=== PATIENT | male | born 1950 | race Caucasian/White ===

== ENCOUNTER 2020-05-19 11:02 | Inpatient (IN) ==
--- OUTSIDE RECORDS SUMMARY | 2020-05-19 11:04 | External Medical Summary | Continuity of Care Document ---
:1950 Author Name Melissa Stevenson Address Unavailable Unavailable , Care Team Providers Name Role Phone Unavailable Unavailable Unavailable Carrol Grider M.D. Unavailable [email or web address] CASTILLO Unavailable Unavailable Unavailable Unavailable Unavailable Problems Intrinsic asthma (493.10) (J45.909) Cholangiocarcinoma (155.1) (C22.1) Diabetes mellitus (250.00) (E11.9) Essential hypertension (401.9) (I10) Allergies and Adverse Reactions No Known Drug Allergies (Allergy) Medications Asmanex (60 Metered Doses) 220 MCG/INH I nhalation Aerosol Powder Breath Activated; USE 2 INHALATIONS DAILY (DISCARD 45 DAYS AFTER OPENING) Elva Grider Start: 18-Dec-2014 Quantity: 3 Refills: 2 HumaLOG Elva DAMON Refills: 0 Multi-Vitamin TABElva Ríos Refills: 0 Benazepril HCl - 40 MG Oral Tablet; TAKE 1 TABLET DAILY. Jaquelin Refills: 0 Procedures History of Rotator Cuff Repair Status: C ompleted History of Laminectomy Lumbar Status: Co mpleted History of Ankle Arthroplasty Status: Co mpleted History of Tonsillectomy Status: Complet ed History of Prox Subt Pancreat Near-Total Duodenectomy W/ Status: Completed Pancreatojej Immunizations Influenza On: Jan-2012 Family History Mother Family history of Congestive Heart Failure Status: Active Father Family history of Colon Cancer (V16.0) Status: Active Brother Family history of Cerebral Atherosclerosis Status: Active Social History - Smoking Status Never smoked tobacco Plan of Treatment Planned Observations Planned Goals not documented Results No Known Results Results not documented
--- NOTE | 2020-05-19 12:22 | Emergency Department Note ---
History of Present Illness General Chief Complaint: Illness Stated Complaint: Hypertension Time Seen by Provider: 05/19/20 12:04 Source: patient Mode of arrival: ambulatory Limitations: no limitations History of Present Illness Provider Complaint: abdominal pain Maximum Pain Intensity: 1 This is a 69-year-old male who presents to the ED with a chief complaint of mild epigastric abdominal pain as well as subjective fevers and chills this morning a little shakiness and elevated blood pressure. The patient states that his initial symptoms started on Sunday with some epigastric abdominal pain. It worsened on Sunday and seemed to improve on Sunday. It is steadily improved until today where he reports it is 1 out of 10. He states that he was seen by his PCP yesterday and had a chest x-ray that was unremarkable. The patient has history of cholangiocarcinoma with status post Whipple procedure in 2012. He has had his gallbladder removed as well at that time. The patient states that his blood pressure this morning was 245/154. He states that his heart rate was 106. He was concerned about these abnormal vital signs and felt that he should come in to have things evaluated. He states that yesterday he had a headache but it got better after a couple of Advil. The patient denies any cold symptoms. He denies any antipyretics today. Denies chest pains or shortness of breath. No nausea, vomiting or diarrhea now but he did have a little nausea this morning. Home Medications Medication Instructions Recorded Confirmed Type acetaminophen [Tylenol] 650 mg PO QID PRN 05/19/20 05/19/20 History amoxicillin 2,000 mg PO .PRIOR TO DENTAL DORITA 05/19/20 05/19/20 History xetmgli-ffefti-yrfpcfoe-cellul 2 cap PO TID 05/19/20 05/19/20 History ascorbic acid (vitamin C) [Vitamin 1 g PO DAILY 05/19/20 05/19/20 History C] atorvastatin 40 mg PO HS 05/19/20 05/19/20 History benazepril 10 mg PO DAILY 05/19/20 05/19/20 History glucagon [Glucagon Emergency Kit] 1 mg DIRECTED PRN 05/19/20 05/19/20 History ibuprofen [Advil] 200 mg PO Q6H PRN 05/19/20 05/19/20 History insulin aspart U-100 [Novolog 0 unit SUBCUT TID 05/19/20 05/19/20 History Flexpen U-100 Insulin] insulin detemir U-100 [Levemir 20 unit SUBCUT HS 05/19/20 05/19/20 History FlexTouch U-100 Insuln] multivitamin 1 tab PO DAILY 05/19/20 05/19/20 History sildenafil 100 mg PO DAILY PRN 05/19/20 05/19/20 History Allergies Allergy/AdvReac Type Severity Reaction Status Date / Time No Known Allergies Allergy Verified 05/19/20 13:42 Past Med/Surg History Social History Smoking Status: Never smoker Feels Safe at Home: Yes Review of Systems A total of 10 systems reviewed and were otherwise negative Physical Exam Vital Signs: Vital Signs - 24 hr 05/19/20 11:06 05/19/20 12:30 05/19/20 12:40 Temperature 37.4 C Temperature Source Temporal Artery Sc an Pulse Rate 112 H 102 H Pulse Rate [Left] 102 H Respiratory Rate 18 18 18 Respiratory Effort / Characteristics Non-Labored Sponta neous Respiratory Depth Normal Blood Pressure 167/65 H Blood Pressure [Le ft Arm] 158/76 H Blood Pressure Diamante n 99 Blood Pressure Diamante n [Left Arm] 103 Blood Pressure Pos ition [Left Arm] Lying Pulse Oximetry 97 98 97 Oxygen Delivery Me thod Room Air Room Air Room Air Sepsis Recent Feve r Within 48 Hours No Sepsis New/Unexpla ined Change in Men karin Status No Sepsis Action Take n by Nursing No Action Required 05/19/20 14:09 05/19/20 16:08 Temperature 37.9 C H 39.5 C H Temperature Source Oral Oral Pulse Rate Pulse Rate [Left] 93 H 98 H Respiratory Rate 18 20 Respiratory Effort / Characteristics Non-Labored Sponta neous Non-Labored Sponta neous Respiratory Depth Normal Normal Blood Pressure Blood Pressure [Le ft Arm] 147/74 H 137/69 Blood Pressure Diamante n Blood Pressure Diamante n [Left Arm] 98 91 Blood Pressure Pos ition [Left Arm] Lying Lying Pulse Oximetry 97 95 Oxygen Delivery Me thod Room Air Room Air Sepsis Recent Feve r Within 48 Hours Sepsis New/Unexpla ined Change in Men karin Status Sepsis Action Take n by Nursing Physical Exam: CONSTITUTIONAL/VITAL SIGNS: Reviewed / noted above. GENERAL: Non-toxic in appearance. INTEGUMENTARY: Warm, dry, and [place]. HEAD: Normocephalic. EYES: without scleral icterus or trauma. ENT/OROPHARYNX: clear and moist. LYMPHADENOPATHY/NECK: Is supple without lymphadenopathy or meningismus. RESPIRATORY: Lungs clear and equal. CARDIOVASCULAR: Regular rate and rhythm. GI/ABDOMEN: Soft and nontender. No organomegaly or pulsatile mass. No rebound or guarding. Normal bowel sounds. Scar tissue in the epigastric region from his Whipple procedure. EXTREMITIES: Warm and well perfused. BACK: No CVA tenderness. NEUROLOGICAL: Intact without focal deficits. PSYCHIATRIC: normal affect. MUSCULOSKELETAL: Normally developed with good muscle tone. TRIAGE NURSING DOCUMENTATION REVIEWED. Course Administered Medications Discontinued Medications Acetaminophen (Acetaminophen 325 Mg Tab) 650 mg PO NOW STA Stop: 05/19/20 16:08 Last Admin: 05/19/20 16:15 Dose: 650 mg Documented by: [id number] Sodium Chloride (Nss) 500 mls @ 999 mls/hr IV .Q31M SHAMA Stop: 05/19/20 13:00 Last Infusion: 05/19/20 13:24 Dose: 0 mls/hr Documented by: [id number] Admin: 05/19/20 12:43 Dose: 999 mls/hr Documented by: [id number] Cefepime HCl (Maxipime) 2,000 mg in 20 mls @ 5 mls/min IV NOW STA; Protocol Stop: 05/19/20 12:36 Last Admin: 05/19/20 12:45 Dose: Not Given Documented by: [id number] Cefepime HCl (Maxipime) 2,000 mg in 20 mls @ 5 mls/min IV NOW STA; Protocol Stop: 05/19/20 16:18 Last Admin: 05/19/20 16:28 Dose: 5 mls/min Documented by: [id number] Ioversol (Ioversol 100ml) 94 ml IV ONCE ONE Stop: 05/19/20 15:06 Last Admin: 05/19/20 15:06 Dose: 94 ml Documented by: [id number] Medical Decision Making Differential Diagnosis Differential considered: pancreatitis, hepatitis, acute cholecystitis, AAA, UTI, pyelonephritis, kidney stones, appendicitis, diverticulitis, shingles, bowel obstruction, mesenteric ischemia, intussusception,hernia, recurrent cancer. Medical Records Attestation: I reviewed the patient's medical records. Home Medications Current Medication List: was personally reviewed by me Laboratory Data Attestation: I reviewed the patient's lab results. Result diagrams: 05/19/20 12:38 05/19/20 12:30 Lab Results 05/19/20 05/19/20 05/19/20 Range/Units 12:30 12:30 12:38 WBC 10.22 (4.8-10.8) K/uL RBC 4.29 L (4.7-6.1) M/uL Hgb 13.7 L (14.0-18.0) g/dL Hct 39.7 L (42-52) % MCV 92.5 (80-100) fL MCH 31.9 (25-34) pg MCHC 34.5 (32-36) g/dL RDW Std Deviation 42.9 (36.4-46.3) fL RDW Coeff of Shahab 12.7 (11.5-14.5) % Plt Count 196 (130-400) K/uL MPV 10.1 (7.4-10.4) fL Immature Gran % (Auto) 0.2 % Neut % (Auto) 83.5 % Lymph % (Auto) 5.2 % Rooks % (Auto) 10.5 % Eos % (Auto) 0.5 % Baso % (Auto) 0.1 % Neut # (Auto) 8.54 H (1.4-6.5) K/uL Lymph # (Auto) 0.53 L (1.2-3.4) K/uL Rooks # (Auto) 1.07 H (0.11-0.59) K/uL Eos # (Auto) 0.05 (0-0.5) K/uL Baso # (Auto) 0.01 (0-0.2) K/uL Immature Gran # (Auto) 0.02 (0.00-0.02) K/uL Sodium 139 (136-145) mmol/L Potassium 4.5 (3.5-5.1) mmol/L Chloride 105 (98-107) mmol/L Carbon Dioxide 26 (21-32) mmol/L Anion Gap 8.0 (3-11) BUN 14 (7-18) mg/dl Creatinine 1.20 (0.6-1.4) mg/dl Est Cr Clr Drug Dosing 62.0 ml/min Est GFR ( Amer) 70.1 Est GFR (Non-Af Amer) 60.5 BUN/Creatinine Ratio 11.7 (10-20) Glucose 212 H (70-99) mg/dl Calcium 8.9 (8.5-10.1) mg/dl Total Bilirubin 0.7 (0.2-1) mg/dl AST 47 H (15-37) U/L ALT 90 H (12-78) U/L Alkaline Phosphatase 167 H (45-117) U/L Total Protein 7.4 (6.4-8.2) gm/dl Albumin 3.3 L (3.4-5.0) gm/dl Globulin 4.1 H (2.5-4.0) gm/dl Albumin/Globulin Ratio 0.8 L (0.9-2) Lipase 24 L (73-393) U/L Urine Color Yellow Urine Appearance Clear (Clear) Urine pH 5.0 (4.5-7.5) Ur Specific [place] 1.025 (1.000-1.030) Urine Protein Negative (Negative) Urine Glucose (UA) Negative (Negative) Urine Ketones Trace H (Negative) Urine Blood Negative (Negative) Urine Nitrite Negative (Negative) Urine Bilirubin Negative (Negative) Urine Urobilinogen Negative (Negative) Ur Leukocyte Esterase Negative (Negative) COVID-19 Eval Order SARS-CoV-2, RNA, NAAT (NEGATIVE) 05/19/20 05/19/20 Range/Units 14:20 14:20 WBC (4.8-10.8) K/uL RBC (4.7-6.1) M/uL Hgb (14.0-18.0) g/dL Hct (42-52) % MCV (80-100) fL MCH (25-34) pg MCHC (32-36) g/dL RDW Std Deviation (36.4-46.3) fL RDW Coeff of Shahab (11.5-14.5) % Plt Count (130-400) K/uL MPV (7.4-10.4) fL Immature Gran % (Auto) % Neut % (Auto) % Lymph % (Auto) % Rooks % (Auto) % Eos % (Auto) % Baso % (Auto) % Neut # (Auto) (1.4-6.5) K/uL Lymph # (Auto) (1.2-3.4) K/uL Rooks # (Auto) (0.11-0.59) K/uL Eos # (Auto) (0-0.5) K/uL Baso # (Auto) (0-0.2) K/uL Immature Gran # (Auto) (0.00-0.02) K/uL Sodium (136-145) mmol/L Potassium (3.5-5.1) mmol/L Chloride (98-107) mmol/L Carbon Dioxide (21-32) mmol/L Anion Gap (3-11) BUN (7-18) mg/dl Creatinine (0.6-1.4) mg/dl Est Cr Clr Drug Dosing ml/min Est GFR ( Amer) Est GFR (Non-Af Amer) BUN/Creatinine Ratio (10-20) Glucose (70-99) mg/dl Calcium (8.5-10.1) mg/dl Total Bilirubin (0.2-1) mg/dl AST (15-37) U/L ALT (12-78) U/L Alkaline Phosphatase (45-117) U/L Total Protein (6.4-8.2) gm/dl Albumin (3.4-5.0) gm/dl Globulin (2.5-4.0) gm/dl Albumin/Globulin Ratio (0.9-2) Lipase (73-393) U/L Urine Color Urine Appearance (Clear) Urine pH (4.5-7.5) Ur Specific [place] (1.000-1.030) Urine Protein (Negative) Urine Glucose (UA) (Negative) Urine Ketones (Negative) Urine Blood (Negative) Urine Nitrite (Negative) Urine Bilirubin (Negative) Urine Urobilinogen (Negative) Ur Leukocyte Esterase (Negative) COVID-19 Eval [facility], RNA, NAAT NEGATIVE (NEGATIVE) Imaging Data Radiologist's Impression: XR chest 1V portable CLINICAL HISTORY: Respiratory sx c/w COVID-19 COUGH COMPARISON STUDY: 02/07/2013 FINDINGS: The cardiac and mediastinal contours are normal. There is no evidence of focal pulmonary consolidation. There is no evidence of failure. No pleural effusions are visualized.[ IMPRESSION: No active disease in the chest. CT scan of the abdomen pelvis:IMPRESSION: 1. Postoperative changes again noted consistent with prior Whipple procedure. Mild infiltration of the fat within the right side the abdomen adjacent to the suture material is similar to the prior study. Therefore, this favors postoperative changes. The majority subcentimeter right mesenteric/ileocolic lymph nodes also remain stable. There is a single right-sided mesenteric lymph node which has slightly increased in size as described above. This bears watching future examinations. 2. No hepatic masses. 3. Focal dilatation of the main pancreatic duct at the tail of the pancreas. There is abrupt caliber change with a punctate calcification adjacent to this location. This calcification is likely external to the duct, however, an obstructing pancreatic duct stone cannot be excluded. In addition, this abrupt caliber change could be due to a stricture or an occult lesion. Therefore, follow-up endoscopic ultrasound is recommended for further evaluation. 4. Diastases of the midline upper abdominal wall with outpouching of multiple bowel loops. However, no definite hernia identified. 5. Moderate well-formed stool seen within the colon and rectum. 6. Possible moderate focal narrowing within the mid splenic vein. This is difficult to assess on this study due to the timing of contrast. This may account for the prominent left upper quadrant varicosities. 7. Additional findings as described above. ECG Data Attestation: I personally reviewed and interpreted this ECG as follows: Indication: abdominal pain and tachycardia Rate (beats per minute): 94 Rhythm: normal sinus Findings: no PVC, no ST elevation and no prolonged QT MDM Narrative Patient presents with some improving epigastric abdominal pain as well as subjective fevers and chills this morning and elevated blood pressure. Further details listed above. The patient's exam did not reveal any focal abdominal tenderness. He appears well. His vital signs here are stable. He is tachycard ic with a heart rate of 112 and a blood pressure is elevated of 167/65. CBC is unremarkable. Glucose was 212. AST is 47 and ALT is 90. Alkaline phosphatase 167. Lipase was normal. Urine did not show infection. Chest x-ray was negative for acute disease. Covid test was negative. A CT scan of the abdomen pelvis as noted above. A follow-up endoscopic ultrasound was recommended for further evaluation of a dilated main pancreatic duct in the tail the pancreas. I feel this is less likely be the patient's issue as the patient's pancreatic enzymes are normal and his exam did not suggest any tenderness. The patient was reassessed and told the results of the test. He was given some IV fluids. He states that overall he is feeling better than when he came in. During the patient's ED stay, his temperature steadily increased to the point when he was being dispositioned his temperature was 39.5. The exact cause of this fever is unclear. This could be related to bacteremia. Blood cultures are pending. Because of the increasing fever and the patient's rigors and chills from earlier , I feel that patient needs observed to rule out bacteremia. He was given 1 dose of cefepime here empirically. I did speak with the hospitalist about this patient. Impression & Plan Abdominal pain, acute, epigastric Discharge Plan Visit Data Chief Complaint: Illness Stated Complaint: Hypertension ED Provider: Noah Garcia Discharge Problem: Abdominal pain, acute, epigastric Patient Disposition: Being Evaluated by Hospitalist Forms Stand Alone Forms: Coronavirus, My [facility] Prescriptions Prescriptions: No Action multivitamin Tablet 1 tab PO DAILY RF: 0 amoxicillin 500 mg Capsule 2,000 mg PO .PRIOR TO DENTAL DORITA RF: 0 atorvastatin 40 mg Tablet 40 mg PO HS RF: 0 Glucagon Emergency Kit 1 mg Kit 1 mg DIRECTED PRN (Reason: Glucose Emergency) RF: 0 ascorbic acid (vitamin C) [Vitamin C] 1,000 mg Tablet 1 g PO DAILY RF: 0 acetaminophen [Tylenol] 325 mg Tablet 650 mg PO QID PRN (Reason: pain or fever) RF: 0 sildenafil 100 mg Tablet 100 mg PO DAILY PRN (Reason: Erectile Dysfunction) RF: 0 ibuprofen [Advil] 200 mg Tablet 200 mg PO Q6H PRN (Reason: Pain) RF: 0 benazepril 10 mg Tablet 10 mg PO DAILY RF: 0 opzooii-pyqopz-mqakkskb-cellul Capsule 2 cap PO TID RF: 0 insulin aspart U-100 [Novolog Flexpen U-100 Insulin] 100 unit/mL (3 mL) Insulin Pen 0 unit SUBCUT TID RF: 0 Levemir FlexTouch U-100 Insuln 100 unit/mL (3 mL) Insulin Pen 20 unit SUBCUT HS RF: 0 Referrals Referrals: Dylan Esqueda, [Primary Care Provider] -
[2020-05-19] MEDS ORDERED: SODIUM CHLORIDE 0.9% 500 ML IV SCH (12:30)
[2020-05-19] MEDS ORDERED: CEFEPIME 2,000 MG/20 ML VIAL IV STA ×2 (12:33→16:15)
[2020-05-19] MEDS ORDERED: SODIUM CHLORIDE 0.9% 1000ML 1,000 ML IV SCH (12:45)
[2020-05-19 12:47] LABS: Basophils # (auto) 0.01 K/uL (0-0.2); Basophils % (auto) 0.1 %; Eosinophils # (auto) 0.05 K/uL (0-0.5); Eosinophils % (auto) 0.5 %; Hematocrit (blood only) 39.7 % (42-52); Hemoglobin 13.7 g/dL (14.0-18.0); Immature Granulocytes # (auto) 0.02 K/uL (0.00-0.02); Immature Granulocytes % (auto) 0.2 %; Lymphocytes # (auto) 0.53 K/uL (1.2-3.4); Lymphocytes % (auto) 5.2 %; Mean Corpuscular Hemoglobin 31.9 pg (25-34); Mean Corpuscular Hgb Conc 34.5 g/dL (32-36); Mean Corpuscular Volume 92.5 fL (80-100); Mean Platelet Volume 10.1 fL (7.4-10.4); Monocytes # (auto) 1.07 K/uL (0.11-0.59); Monocytes % (auto) 10.5 %; Neutrophils # (auto) 8.54 K/uL (1.4-6.5); Neutrophils % (auto) 83.5 %; Platelet Count 196 K/uL (130-400); RDW Coefficient of Variation 12.7 % (11.5-14.5); RDW Standard Deviation 42.9 fL (36.4-46.3); Red Blood Count 4.29 M/uL (4.7-6.1); White Blood Count 10.22 K/uL (4.8-10.8)
[2020-05-19 12:51] LABS: Appearance Urine Clear (Clear); Bilirubin Urine Negative (Negative); Blood Urine Negative (Negative); Color Urine Yellow; Glucose Urine UA Negative (Negative); Ketones Urine Trace (Negative); Leukocyte Esterase Urine Negative (Negative); Nitrite Urine Negative (Negative); Protein Urine Negative (Negative); Specific Gravity Urine 1.025 (1.000-1.030); Urobilinogen Urine Negative (Negative)
[2020-05-19 13:04] LABS: Albumin Level 3.3 gm/dl (3.4-5.0); BUN Creatinine Ratio 11.7 (10-20); Calcium 8.9 mg/dl (8.5-10.1); Est GFR (African American) 70.1; Est GFR (Non-African American) 60.5; Potassium 4.5 mmol/L (3.5-5.1)
[2020-05-19 13:07] LABS: Albumin Globulin Ratio 0.8 (0.9-2); Bilirubin,Total 0.7 mg/dl (0.2-1); Globulin 4.1 gm/dl (2.5-4.0); Total Protein 7.4 gm/dl (6.4-8.2)
--- NOTE | 2020-05-19 13:07 | Electrocardiogram Report ---
Test Reason : Blood Pressure : / mmHG Vent. Rate : 094 BPM Atrial Rate : 094 BPM P-R Int : 172 ms QRS Dur : 086 ms QT Int : 324 ms P-R-T Axes : 061 -63 069 degrees QTc Int : 405 ms Normal sinus rhythm Left axis deviation Inferior infarct , age undetermined Abnormal ECG When compared with ECG of 07-FEB-2013 11:27, RSR' pattern in V1 is no longer Present Inferior infarct is now Present Confirmed by Dale Hanna ([id number]) on 05/19/2020 1:06:46 PM Referred By: REFERRED SELF Confirmed By:Dale Hanna
--- NOTE | 2020-05-19 14:32 | XRay Report ---
XR chest 1V portable CLINICAL HISTORY: Respiratory sx c/w COVID-19 COUGH COMPARISON STUDY: 02/07/2013 FINDINGS: The cardiac and mediastinal contours are normal. There is no evidence of focal pulmonary co nsolidation. There is no evidence of failure. No pleural effusions are visualized.[ IMPRESSION: No active disease in the chest. ACT 112: Negative or not required by law. Electronically signed by: Robert Perez M.D. 05/19/2020 2:30 PM
[2020-05-19] MEDS ORDERED: IOVERSOL 100ml IV ONE (15:05)
--- NOTE | 2020-05-19 15:39 | CT Scan Report ---
ABDOMEN AND PELVIS CT WITH IV AND ORAL CONTRAST CT DOSE: 603.89 mGy.cm HISTORY: epig pain, hx cholangioCA, s/p whipple 2012 TECHNIQUE: Multiaxial CT images of the abdomen and pelvis were performed following the use of intrave nous and oral contrast. A dose lowering technique was utilized adhering to the principles of ALARA. COMPARISON STUDY: Abdomen and pelvis CT 02/07/2013. FINDINGS: Faint groundglass density within the left lower lobe medially likely represents atelectasis from the adjacent osteophyte. No pneumoperitoneum. No pneumatosis. Left femoral neck exostoses have slightly increased in size. Dominant exostosis measures 4.8 cm. There is a right hip prosthesis. Old, healed right posterior rib fractures. Status post Whipple procedure. No definite hepatic or splenic masses. Punctate calcifications within the adrenal glands. Normal left kidney. A few subcentimeter hy podense lesions within the right kidney which are technically too small to characterize. Statisticall y these represent cysts. No hydronephrosis. No ureteral stones. The bladder is mildly distended. No b ladder wall thickening. The prostate gland is mildly enlarged. This is suboptimally assessed due to m etallic artifact from the right hip prosthesis. No retroperitoneal lymphadenopathy. There is a left r etroaortic renal vein. The main portal vein appears patent. There is focal dilatation at the main briggs creatic duct at the tail the pancreas. There is an abrupt caliber change best seen on image 136 at th e tail of pancreas. The main pancreatic duct measures up to 6 mm in diameter. There is a punctate ryanne cification on image 145 near the abrupt caliber change. This is likely external to the duct. However, a small pancreatic duct stone cannot be excluded. This abrupt caliber change could also be secondary to a stricture or occult lesion. Diastases of the midline upper abdominal wall with outpouching of m ultiple bowel loops. However, no definite hernia identified. There is suture material within the righ t side of the abdomen adjacent to the proximal superior mesenteric artery with minimal infiltration o f the fat. This is similar to the prior study and therefore favors postoperative changes. The majorit y subcentimeter right mesenteric/ileocolic lymph nodes remain stable. Increase in size in a single ly mph node within the right side of the mesentery on image 147. This measures 1.4 x 0.8 cm. No pelvic f ree fluid. Moderate well-formed stool seen within the colon and rectum. Multiple left upper quadrant varicosities have slightly progressed. Also moderate narrowing within the mid splenic vein. This is n ot well assessed due to the timing of contrast. No bowel wall thickening or obstruction. Normal appen freddy. IMPRESSION: 1. Postoperative changes again noted consistent with prior Whipple procedure. Mild infiltration of th e fat within the right side the abdomen adjacent to the suture material is similar to the prior study . Therefore, this favors postoperative changes. The majority subcentimeter right mesenteric/ileocolic lymph nodes also remain stable. There is a single right-sided mesenteric lymph node which has slight ly increased in size as described above. This bears watching future examinations. 2. No hepatic masses. 3. Focal dilatation of the main pancreatic duct at the tail of the pancreas. There is abrupt caliber change with a punctate calcification adjacent to this location. This calcification is likely external to the duct, however, an obstructing pancreatic duct stone cannot be excluded. In addition, this abr upt caliber change could be due to a stricture or an occult lesion. Therefore, follow-up endoscopic u ltrasound is recommended for further evaluation. 4. Diastases of the midline upper abdominal wall with outpouching of multiple bowel loops. However, n o definite hernia identified. 5. Moderate well-formed stool seen within the colon and rectum. 6. Possible moderate focal narrowing within the mid splenic vein. This is difficult to assess on this study due to the timing of contrast. This may account for the prominent left upper quadrant varicosi ties. 7. Additional findings as described above. ACT 112: Negative or not required by law. Electronically signed by: Jonathan Mandujano M.D. 05/19/2020 3:38 PM
[2020-05-19] MEDS ORDERED: ACETAMINOPHEN 325 MG TAB PO STA (16:07)
[2020-05-19] MEDS ORDERED: MoRPHine SULFATE 2 MG/ML CARP IV PRN (17:13)
[2020-05-19] MEDS ORDERED: ACETAMINOPHEN 325 MG TAB PO PRN (17:13)
[2020-05-19] MEDS ORDERED: GLUCAGON FOR INJ 1 MG VIAL SQ PRN (17:22)
[2020-05-19] MEDS ORDERED: DEXTROSE 50% 50 ML SYRINGE IV PRN (17:22)
[2020-05-19] MEDS ORDERED: GLUCOSE 10 TABS/TUBE PO PRN (17:22)
[2020-05-19] MEDS ORDERED: CARBOHYDRATES FOR HYPOGLYCEMIA PO PRN (17:22)
[2020-05-19] MEDS ORDERED: GLUCOSE 40% GEL 15 GM TUBE PO PRN (17:22)
--- NOTE | 2020-05-19 17:38 | History & Physical Report ---
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 Last time followed up at [facility] in February, reportedly images were normal Currently presents with abdominal pain of 5 days, +chills, developed fever in the ED, WBC 10K Seen by PCP and AST, ALT alk phos obtained, somewhat elevated, they are also found elevated right now on evaluation in ED CT abdomen pelvis concerning for pancreatic duct stone/stricture/occult lesion and recommend endoscopic ultrasound evaluation Blood cultures obtained and IV fluids and IV antibiotics started Patient received cefepime in ED, will continue with IV Zosyn We will keep n.p.o. Contacted GI PA, will evaluate current images and patient's case tomorrow Tylenol for fever and pain IV morphine as needed Currently patient's pain is well controlled, however he is febrile (4) Dyslipidemia: -At home on statin, will hold for now (5) Hypertension: -History of hypertension, on benazepril -We will hold for now, especially given concern for patient becoming septic -If hypertensive, can use hydralazine as needed (6) DM (diabetes mellitus): Acquired diabetes mellitus, status post Whipple procedure, on insulin Uses Levemir 20 units at bedtime and NovoLog with meals Given n.p.o. status, decrease Levemir to 10 units, and will check blood sugars every 4 hours, will provide insulin as needed Glycemic pharmacy consulted as well Code status: Full DVT ppx: SCDs History of Present Illness Chief Complaint: Abdominal pain, fever Primary Care Provider: Dylan Esqueda DO Mr. Jordan is a 69-year-old gentleman with history of hypertension, hyperlipidemia, history of cholangiocarcinoma, status post Whipple procedure at [facility] in January 2013, by Dr. Goldman, acquired diabetes mellitus requiring insulin status post Whipple, who presents with abdominal pain. Patient was first seen by PCP , Due to abdominal pain, which started on Sunday(4 to 5 days ago), got gradually worse into Sunday (May.15) and then got better. Patient was seen at PCPs office on May 17. The pain is located at below sternum, epigastric and midsternal area, right below the surgical scar. He has no issues with urination or bowel movements, denies any diarrhea. Did not have fever at home, however he does report chills. Denies any vomiting or nausea. Today he became more uncomfortable, and was shaking, his blood pressure was elevated when he checked it at home and therefore then presented to emergency room. He has not been eating today. Given his Whipple procedure, and history of cholangiocarcinoma, he does follow with [facility] and was actually seen in February. Reportedly a scan was done on February 18 and was found normal. Patient was initially afebrile when he came to the emergency room, however while in the ED, patient spiked fever, and continues to be febrile even after Tylenol. Blood cultures were obtained. And patient was given cefepime and IV fluids. PCP ordered blood work, which showed AST 27, ALT 70, alk phos 127, T bili 0.9 white blood cell count of 10,000, all these labs were obtained on May 17. Current labs showed white blood cell count 10,000, AST 47 and ALT 90, alk phos 167. Lipase only 24. CT abdomen pelvis concerning for possible pancreatic duct stone/stricture/occult lesion. And recommended endoscopic ultrasound evaluation. Allergies Allergy/AdvReac Type Severity Reaction Status Date / Time No Known Allergies Allergy Verified 05/19/20 13:42 Home Medications Medication Instructions Recorded Confirmed Type acetaminophen [Tylenol] 650 mg PO QID PRN 05/19/20 05/19/20 History amoxicillin 2,000 mg PO .PRIOR TO DENTAL DORITA 05/19/20 05/19/20 History zcsouca-qhiudn-njcltpob-cellul 2 cap PO TID 05/19/20 05/19/20 History ascorbic acid (vitamin C) [Vitamin 1 g PO DAILY 05/19/20 05/19/20 History C] atorvastatin 40 mg PO HS 05/19/20 05/19/20 History benazepril 10 mg PO DAILY 05/19/20 05/19/20 History glucagon [Glucagon Emergency Kit] 1 mg DIRECTED PRN 05/19/20 05/19/20 History ibuprofen [Advil] 200 mg PO Q6H PRN 05/19/20 05/19/20 History insulin aspart U-100 [Novolog 0 unit SUBCUT TID 05/19/20 05/19/20 History Flexpen U-100 Insulin] insulin detemir U-100 [Levemir 20 unit SUBCUT HS 05/19/20 05/19/20 History FlexTouch U-100 Insuln] multivitamin 1 tab PO DAILY 05/19/20 05/19/20 History sildenafil 100 mg PO DAILY PRN 05/19/20 05/19/20 History Past Med/Surg History Medical History (Updated 05/19/20 @ 18:15 by Jacky Fotser MD) Cholangiocarcinoma Colon polyps Controlled type 2 diabetes mellitus with insulin therapy Dyslipidemia History of Clostridioides difficile infection Hypertension Pancreatic abscess Surgical History (Updated 05/19/20 @ 17:35 by Jacky Foster MD) H/O resection of pancreas H/O total hip arthroplasty Family History (Updated 05/19/20 @ 17:55 by Jacky Foster MD) Mother Diabetes Hypertension Father Diabetes Brother Diabetes Hypertension Heart disease Brother Hypertension Stroke Diabetes Sister Heart disease Diabetes Hypertension Social History Smoking Status: Never smoker Feels Safe at Home: Yes Review of Systems Review of Systems: All systems reviewed & are unremarkable except as noted in HPI & below Constitutional: + chills Eyes: no problem reported Ear, Nose, Mouth, Throat: no problem reported Respiratory: no cough and no dyspnea Cardiovascular: no chest pain and no palpitations Gastrointestinal: + abdominal pain (epigastric/ mid. abd. region); no nausea and no vomiting Genitourinary: no problem reported Musculoskeletal: no problem reported Integumentary: no problem reported Neurologic: no problem reported Psychiatric: no problem reported Endocrine: no problem reported Hematologic / Lymphatic: no problem reported Allergy / Immunological: no problem reported Physical Exam Constitutional: WD/WN, vitals as above no acute distress Eyes: PERRL, conjunctivae normal, anicteric sclerae ENMT: external ear and nose normal, oropharynx normal Neck: trachea midline, no thyromegaly normal visual inspection Respiratory: normal respiratory effort, lungs clear to auscultation Cardiovascular: RRR, no murmur, no edema Chest (Breasts): Chest: normal inspection of chest Gastrointestinal (Abdomen): Inspection/Auscultation: normal bowel sounds and + abdominal surgical scar (mid/ center abdomen) Percussion/Palpation: abdomen soft; no guarding and abdomen not rigid tenderness to palpation in mid./ center abd. region (below surgical scar) Musculoskeletal: no cyanosis or clubbing, extremities motor strength 5/5 He ad/Neck/Chest: normocephalic, head atraumatic and neck supple Skin: no rashes, warm and dry Neurologic: PERRL, EOMI, accommodation nl, no face palsy, no dysarthria moves all extremities Psychiatric: A+Ox3, euthymic affect Genitourinary: no CVA tenderness Lymphatic: no lymphedema Results & Data Results & Data ([facility]) Vital Signs (Past 12 Hours) Vital Signs Temp Pulse Pulse Resp BP BP Pulse Ox 05/19/20 17:19 38.0 C H 94 H 18 115/60 95 05/19/20 16:08 39.5 C H 98 H 20 137/69 95 05/19/20 14:09 37.9 C H 93 H 18 147/74 H 97 05/19/20 12:40 102 H 18 158/76 H 97 05/19/20 12:30 102 H 18 98 05/19/20 11:06 37.4 C 112 H 18 167/65 H 97 Laboratory Results 05/19/20 05/19/20 05/19/20 Range/Units 14:20 14:20 12:38 WBC 10.22 (4.8-10.8) K/uL RBC 4.29 L (4.7-6.1) M/uL Hgb 13.7 L (14.0-18.0) g/dL Hct 39.7 L (42-52) % MCV 92.5 (80-100) fL MCH 31.9 (25-34) pg MCHC 34.5 (32-36) g/dL RDW Std Deviation 42.9 (36.4-46.3) fL RDW Coeff of Shahab 12.7 (11.5-14.5) % Plt Count 196 (130-400) K/uL MPV 10.1 (7.4-10.4) fL Immature Gran % (Auto) 0.2 % Neut % (Auto) 83.5 % Lymph % (Auto) 5.2 % [place] % (Auto) 10.5 % Eos % (Auto) 0.5 % Baso % (Auto) 0.1 % Neut # (Auto) 8.54 H (1.4-6.5) K/uL Lymph # (Auto) 0.53 L (1.2-3.4) K/uL [place] # (Auto) 1.07 H (0.11-0.59) K/uL Eos # (Auto) 0.05 (0-0.5) K/uL Baso # (Auto) 0.01 (0-0.2) K/uL Immature Gran # (Auto) 0.02 (0.00-0.02) K/uL Sodium (136-145) mmol/L Potassium (3.5-5.1) mmol/L Chloride (98-107) mmol/L Carbon Dioxide (21-32) mmol/L Anion Gap (3-11) BUN (7-18) mg/dl Creatinine (0.6-1.4) mg/dl Est Cr Clr Drug Dosing ml/min Est GFR ( Amer) Est GFR (Non-Af Amer) BUN/Creatinine Ratio (10-20) Glucose (70-99) mg/dl Calcium (8.5-10.1) mg/dl Total Bilirubin (0.2-1) mg/dl AST (15-37) U/L ALT (12-78) U/L Alkaline Phosphatase (45-117) U/L Total Protein (6.4-8.2) gm/dl Albumin (3.4-5.0) gm/dl Globulin (2.5-4.0) gm/dl Albumin/Globulin Ratio (0.9-2) Lipase (73-393) U/L Urine Color Urine Appearance (Clear) Urine pH (4.5-7.5) Ur Specific [place] (1.000-1.030) Urine Protein (Negative) Urine Glucose (UA) (Negative) Urine Ketones (Negative) Urine Blood (Negative) Urine Nitrite (Negative) Urine Bilirubin (Negative) Urine Urobilinogen (Negative) Ur Leukocyte Esterase (Negative) COVID-19 Eval Order Covid19 IDNow [facility] SARS-CoV-2, RNA, NAAT NEGATIVE (NEGATIVE) 05/19/20 05/19/20 Range/Units 12:30 12:30 WBC (4.8-10.8) K/uL RBC (4.7-6.1) M/uL Hgb (14.0-18.0) g/dL Hct (42-52) % MCV (80-100) fL MCH (25-34) pg MCHC (32-36) g/dL RDW Std Deviation (36.4-46.3) fL RDW Coeff of Shahab (11.5-14.5) % Plt Count (130-400) K/uL MPV (7.4-10.4) fL Immature Gran % (Auto) % Neut % (Auto) % Lymph % (Auto) % [place] % (Auto) % Eos % (Auto) % Baso % (Auto) % Neut # (Auto) (1.4-6.5) K/uL Lymph # (Auto) (1.2-3.4) K/uL [place] # (Auto) (0.11-0.59) K/uL Eos # (Auto) (0-0.5) K/uL Baso # (Auto) (0-0.2) K/uL Immature Gran # (Auto) (0.00-0.02) K/uL Sodium 139 (136-145) mmol/L Potassium 4.5 (3.5-5.1) mmol/L Chloride 105 (98-107) mmol/L Carbon Dioxide 26 (21-32) mmol/L Anion Gap 8.0 (3-11) BUN 14 (7-18) mg/dl Creatinine 1.20 (0.6-1.4) mg/dl Est Cr Clr Drug Dosing 62.0 ml/min Est GFR ( Amer) 70.1 Est GFR (Non-Af Amer) 60.5 BUN/Creatinine Ratio 11.7 (10-20) Glucose 212 H (70-99) mg/dl Calcium 8.9 (8.5-10.1) mg/dl Total Bilirubin 0.7 (0.2-1) mg/dl AST 47 H (15-37) U/L ALT 90 H (12-78) U/L Alkaline Phosphatase 167 H (45-117) U/L Total Protein 7.4 (6.4-8.2) gm/dl Albumin 3.3 L (3.4-5.0) gm/dl Globulin 4.1 H (2.5-4.0) gm/dl Albumin/Globulin Ratio 0.8 L (0.9-2) Lipase 24 L (73-393) U/L Urine Color Yellow Urine Appearance Clear (Clear) Urine pH 5.0 (4.5-7.5) Ur Specific [place] 1.025 (1.000-1.030) Urine Protein Negative (Negative) Urine Glucose (UA) Negative (Negative) Urine Ketones Trace H (Negative) Urine Blood Negative (Negative) Urine Nitrite Negative (Negative) Urine Bilirubin Negative (Negative) Urine Urobilinogen Negative (Negative) Ur Leukocyte Esterase Negative (Negative) COVID-19 Eval Order SARS-CoV-2, RNA, NAAT (NEGATIVE) Diagnostic Findings CT Abdomen/ Pelvis IMPRESSION: 1. Postoperative changes again noted consistent with prior Whipple procedure. Mild infiltration of the fat within the right side the abdomen adjacent to the suture material is similar to the prior study. Therefore, this favors postoperative changes. The majority subcentimeter right mesenteric/ileocolic lymph nodes also remain stable. There is a single right-sided mesenteric lymph node which has slightly increased in size as described above. This bears watching future examinations. 2. No hepatic masses. 3. Focal dilatation of the main pancreatic duct at the tail of the pancreas. There is abrupt caliber change with a punctate calcification adjacent to this location. This calcification is likely external to the duct, however, an obstructing pancreatic duct stone cannot be excluded. In addition, this abrupt caliber change could be due to a stricture or an occult lesion. Therefore, follow-up endoscopic ultrasound is recommended for further evaluation. 4. Diastases of the midline upper abdominal wall with outpouching of multiple bowel loops. However, no definite hernia identified. 5. Moderate well-formed stool seen within the colon and rectum. 6. Possible moderate focal narrowing within the mid splenic vein. This is difficult to assess on this study due to the timing of contrast. This may account for the prominent left upper quadrant varicosities. 7. Additional findings as described in full report.
[2020-05-19] MEDS ORDERED: ACETAMINOPHEN 1000 MG/100 ML IV IV PRN (19:18)
[2020-05-19] MEDS ORDERED: hydrALAZINE HCL 20 MG/ML VIAL IV PRN (19:18)
[2020-05-19] MEDS ORDERED: PIPERACILL/TAZOBAC CONSULT ACTIVE PRN (19:41)
[2020-05-19] MEDS ORDERED: PHARMACY GLYCEMIC MGMT CONSULT PRN (19:42)
[2020-05-19] MEDS ORDERED: PIPERACILLIN/TAZOBACTAM 3.375 GM in DEXTROSE 5% 100 ML IV STA (19:49)
[2020-05-19] MEDS ORDERED: INSULIN DETEMIR FLEXPEN/FLEX TOUCH 100 UNITS/ML 3ML SQ SCH (21:00)
[2020-05-19] MEDS: INSULIN ASPART 100 UNITS/ML 3 ML PEN SC SCH (21:02)
[2020-05-20] MEDS: INSULIN ASPART 100 UNITS/ML 3 ML PEN SC SCH ×5 (00:35→20:54)
[2020-05-20] MEDS: PIPERACILLIN/TAZOBACTAM 3.375 GM in DEXTROSE 5% 100 ML IV SCH ×3 (01:34→21:56)
[2020-05-20 06:40] LABS: Basophils # (auto) 0.03 K/uL (0-0.2); Basophils % (auto) 0.4 %; Eosinophils # (auto) 0.14 K/uL (0-0.5); Eosinophils % (auto) 1.7 %; Hematocrit (blood only) 37.7 % (42-52); Immature Granulocytes # (auto) 0.02 K/uL (0.00-0.02); Immature Granulocytes % (auto) 0.2 %; Lymphocytes # (auto) 1.59 K/uL (1.2-3.4); Lymphocytes % (auto) 19.4 %; Mean Corpuscular Hemoglobin 31.6 pg (25-34); Mean Corpuscular Hgb Conc 34.5 g/dL (32-36); Mean Corpuscular Volume 91.5 fL (80-100); Mean Platelet Volume 9.7 fL (7.4-10.4); Monocytes # (auto) 1.24 K/uL (0.11-0.59); Monocytes % (auto) 15.2 %; Neutrophils # (auto) 5.16 K/uL (1.4-6.5); Neutrophils % (auto) 63.1 %; Platelet Count 185 K/uL (130-400); RDW Coefficient of Variation 12.8 % (11.5-14.5); RDW Standard Deviation 42.9 fL (36.4-46.3); Red Blood Count 4.12 M/uL (4.7-6.1); White Blood Count 8.18 K/uL (4.8-10.8)
[2020-05-20 07:41] LABS: Albumin Globulin Ratio 0.8 (0.9-2); Albumin Level 2.9 gm/dl (3.4-5.0); BUN Creatinine Ratio 11.9 (10-20); Bilirubin,Total 1.2 mg/dl (0.2-1); Calcium 8.8 mg/dl (8.5-10.1); Creatinine Clr Calc Pharmacy 71.5 ml/min; Est GFR (African American) 83.3; Est GFR (Non-African American) 71.9; Globulin 3.6 gm/dl (2.5-4.0); Magnesium 1.7 mg/dl (1.8-2.4); Phosphorus 3.6 mg/dl (2.5-4.9); Potassium 3.6 mmol/L (3.5-5.1); Total Protein 6.5 gm/dl (6.4-8.2)
[2020-05-20 07:57] LABS: Estimated Average Glucose 174 mg/dl; Hemoglobin A1C 7.7 % (4.5-5.6)
[2020-05-20] MEDS ORDERED: MAGNESIUM SULFATE / D5W 1 GM/100 ML BAG IV ONE (08:15)
[2020-05-20 08:28] LABS: Lyme Ab IgG w/WB Rflx Negative (Negative); Lyme Ab IgM w/WB Rflx Negative (Negative)
[2020-05-20] MEDS ORDERED: MICONAZOLE NITRATE POWDER 43 GM EXT PRN (12:14)
--- NOTE | 2020-05-20 12:47 | Magnetic Resonance Report ---
MR MRCP CLINICAL HISTORY: Postop Whipple's procedure. Pancreatic ductal dilatation. Abnormal CT scan. COMPARISON STUDY: CT scan dated 05/19/2010 FINDINGS: A breath-hold MRCP was performed. MIP images were acquired. No suspicious hepatic renal or splenic masses are visualized. The gallbladder is surgically absent. There is no intrahepatic biliary ductal dilatation. There is ev idence for a suspected hepaticojejunostomy. The pancreatic duct was not optimally demonstrated on this examination. There is a small cystic lesio n within the pancreatic tail measuring 7 mm. This may represent a side branch IPMN. There is minimal dilatation of the pancreatic duct within the distal body and tail. There are no filling defects to in dicate calculi. The patient appears be status post a Whipple's procedure. IMPRESSION: 1. Postsurgical changes are prior Whipple's procedure 2. No evidence of intrahepatic biliary ductal dilatation 3. Mild dilated beaded appearance of the pancreatic duct within the distal body and tail measuring 3. 6 mm in diameter. There are no filling defects to indicate calculi. 4. 7 mm cystic pancreatic tail lesion possibly representing a side branch IPMN ACT 112: Negative or not required by law. Electronically signed by: Robert Perez M.D. 05/20/2020 12:45 PM
--- NOTE | 2020-05-20 13:32 | Gastrointestinal Consultation ---
Date of Consultation May 20, 2020 Assessment & Plan (1) Abdominal pain, acute, epigastric: Pt is a 69 y/o male w hx of cholangiocarcinoma s/p Whipple at [facility] in 2012 who presented w epigastric abd pain, fever, chills x 5 days. Infectious workup negative so far, blood cx pending, he's getting Zosyn IV for coverage. LFTs were initially elevated but normalizing, lipase normal. CT abd/pelvis showed pancreatic duct dilation and calcification around that area unable to exclude stone, obstructing lesion/stricture. His last f/u w [facility] was last February, and at that time his outpt CT also showed the duct dilation w parenchymal calcification. - Monitor LFTs - Continue antibx coverage - Obtain MRCP to r/o obstructing stone. Pt did note that if he is to have any invasive endoscopic procedures, he'd like it done at [facility] Attg add: I interviewed and examined pt, reviewed chart and labs. Pt s/p Whipple now admit with abd pain f/c. He had high fever but o/w stable VS on admission, LFT's mildly abnl with mild elevation of bili. Imaging shows evidence of chornic panc but no IHDD or evidence of afferent loop syndrome. A/P: Probable cholangitis, although LFT's only mildly increased. - Agree with empiric Zosyn, w/u for other causes of infection. Please continue 7 days of abx; if pt cont to improve, can complete outpt abx with cipro/flagyl. - Would consider outpt HIDA to eval patency of H-J anastamosis; i reviewed imaging with radiology and there is no evidence of aff loop. I spoke to pt at great length about possibility of occult anastamtoic biliary stricture -- he willl pursue further testing for this, including possible HIDA, at [facility]. He will arrange for f/u at [facility]. History of Present Illness Reason for Consultation: Eval for EUS need; ? pancreatic duct stricture Requesting Physician: Dr. Roxanne Oakes Attending Physician: Dr. Krista Bundy History of Present Illness Pt is a 69 y/o male w hx of cholangiocarcinoma s/p Whipple at [facility] (Dr. Goldman) in 2012 who presented yesterday w c/o epigastric abd pain since last Jarrod. Pain is pressure like and no radiating, feels almost like "gas bubble". Pt has associated chills and fever. Denies jaundice, or changes in bowel habits including diarrhea. On eval , he is noted to be febrile and so far urine cx, CXR unremarkable. Blood cx pending. LFTs showed they were elevated yesterday but normalizing today. Lipase normal. CT abd/pelvis showed post Whipple changes w focal dilation of main pancreatic duct at tail of pancreas. There's an abrupt caliber change with punctate calcification adjacent to this location that's likely external to duct but cannot exclude stone, obstructing lesion or stricture. Pt had been followed by Catalino Nunez, last visit Feb 2020. His last outpt CT did show pancreatic calcification at level of duct cut off and mild dilation as well. Allergies Allergy/AdvReac Type Severity Reaction Status Date / Time No Known Allergies Allergy Verified 05/19/20 13:42 Home Medications Medication Instructions Recorded Confirmed Type acetaminophen [Tylenol] 650 mg PO QID PRN 05/19/20 05/19/20 History amoxicillin 2,000 mg PO .PRIOR TO DENTAL DORITA 05/19/20 05/19/20 History zvyprvj-bqiprl-opcnwisg-cellul 2 cap PO TID 05/19/20 05/19/20 History ascorbic acid (vitamin C) [Vitamin 1 g PO DAILY 05/19/20 05/19/20 History C] atorvastatin 40 mg PO HS 05/19/20 05/19/20 History benazepril 10 mg PO DAILY 05/19/20 05/19/20 History glucagon [Glucagon Emergency Kit] 1 mg DIRECTED PRN 05/19/20 05/19/20 History ibuprofen [Advil] 200 mg PO Q6H PRN 05/19/20 05/19/20 History insulin aspart U-100 [Novolog 0 unit SUBCUT TID 05/19/20 05/19/20 History Flexpen U-100 Insulin] insulin detemir U-100 [Levemir 20 unit SUBCUT HS 05/19/20 05/19/20 History FlexTouch U-100 Insuln] multivitamin 1 tab PO DAILY 05/19/20 05/19/20 History sildenafil 100 mg PO DAILY PRN 05/19/20 05/19/20 History Patient History Medical History Cholangiocarcinoma Colon polyps Controlled type 2 diabetes mellitus with insulin therapy Dyslipidemia History of Clostridioides difficile infection Hypertension Pancreatic abscess Surgical History H/O resection of pancreas H/O total hip arthroplasty Family History Mother Diabetes Hypertension Father Diabetes Brother Diabetes Hypertension Heart disease Brother Hypertension Stroke Diabetes Sister Heart disease Diabetes Hypertension Social History Smoking Status: Never smoker Hx Alcohol Use: Yes Hx Substance Use: No Preferred Language: Indonesian Communication Ability: Effective Manager Photo Required: No Beliefs That Will Affect Care: None Current Living Situation: Spouse Other Information That Helps Us Care for You: No Feels Safe at Home: Yes Safety Concerns: Feels Safe At This Time Assistive Devices: Glasses and Hearing Aid - Bilateral Review of Systems Review of Systems: All systems reviewed & are unremarkable except as noted in HPI & below Physical Exam Constitutional: WD/WN, vitals as above well groomed, cooperative and comfortable Eyes: PERRL, conjunctivae normal, anicteric sclerae ENMT: external ear and nose normal, oropharynx normal Respiratory: normal respiratory effort, lungs clear to auscultation Cardiovascular: RRR, no murmur, no edema Gastrointestinal (Abdomen): normal bowel sounds, soft, nontender, no hepatosplenomegaly Skin: no rashes, warm and dry no jaundice Psychiatric: A+Ox3, euthymic affect Lymphatic: no lymphedema Results & Data ([facility] [place]) Vital Signs (Past 12 Hours) Vital Signs Temp Pulse Pulse Resp BP Pulse Ox 05/20/20 08:00 66 05/20/20 07:25 36.6 C 62 18 109/62 97 05/20/20 03:36 36.6 C 58 L 16 111/64 97
--- NOTE | 2020-05-20 15:51 | Pharmacy Report ---
Pharmacy Glycemic Short Note 2 - Date of Service May 20, 2020 - Glycemic Short BSG Results (Last 24 hours): 05/19/20 05/20/20 05/20/20 20:06 00:15 05:47 Glucose POC Glucose 252 H 121 H 92 05/20/20 05/20/20 05/20/20 06:17 07:51 12:39 Glucose 75 POC Glucose 81 82 OUTPATIENT ANTIDIABETIC REGIMEN: * Lantus 20 units SQ HS + Novolog SSI * A1c = 7.7% ASSESSMENT: * Catalino is a 69 yo male admitted with abdominal pain * He was continued on home Lantus dose last evening. BSGs have been below goal today, likely due to NPO status. He will be resuming a diet at dinner. * Will slightly decrease basal insulin and continue current novolog orders (based on weight/stress 2) PLAN FOR INPATIENT GLYCEMIC CONTROL: * Hold outpatient oral diabetes medications * Basal insulin * Lantus 15-18 units SQ HS * Bolus insulin * NovoLog per scale ACHS or Q6hrs while NPO * Goal Range: Low 110 mg/dL - High 140 mg/dL * Correction Factor: 25 mg/dL/unit * Nutritional / Prandial insulin per carb ratio of 1 unit per 8 grams CHO consumed PLAN FOR DISCHARGE: * A1c acceptable based on patient age * Continue current dose and adjust per outpatient provider
--- NOTE | 2020-05-20 17:29 | Hospitalist Progress Note ---
Date of Service May 20, 2020 Assessment & Plan (1) Abdominal pain, acute, epigastric: (2) Fever: (3) Cholangiocarcinoma: Patient history of chondral carcinoma, status post liver procedure at [facility] in 2012 Present on admission with abdominal discomfort associated with chills and developed fever in the ED Liver enzymes mildly elevated on admission CT abdomen pelvis on admission concerning for pancreatic duct stone/stricture/occult lesion and recommend endoscopic ultrasound evaluation MRCP showed mild dilated beaded appearance of the pancreatic duct within the distal body and tail measuring 3.6 mm in diameter. There are no filling defects to indicate calculi. 7 mm cystic pancreatic tail lesion possibly representing a side branch IPMN Received IV Cefepime in the ED Blood cx no growth Continue IV Zosyn for now Continue pain control Gastro on board recommended to continue abx to complete 7 days course. if pt cont to improve, can complete outpt abx with cipro/flagyl. Consider outpatient HIDA scan as per GI Pt said that if he needs any intervention or precedure that he would want to get it done at [facility] Will advance diet as tolerated (4) Dyslipidemia: Statin on hold, will resume on discharge (5) Hypertension: Will resume benazepril Continue monitor BP (6) DM (diabetes mellitus): Acquired diabetes mellitus, status post Whipple procedure, on insulin Most recent Hba1c 7.7 Uses Levemir 20 units at bedtime and NovoLog with meals, Receive 10unit of Levemir since pt was NPO this morning Continue monitor BS Hypomagnesemia Mg 1.7 today Mg replaced Continue monitor electrolytes Code status: Full DVT ppx: SCDs Admission and Anticipated Discharge Date Admission Date: May 19, 2020 Subjective Pt was seen and examined for follow up of abdominal pain Lying in bed with no distress Pt said that his abdominal pain improves, He said that it was more like a discomfort Pt said that if he has to get any procedure done that he would rather do it at [facility] He said that he already called to get an appointment with his specialist at [facility] next Sunday Denies any chest pain, palpitation, dizziness and SOB Physical Exam Physical Exam: General- No acute distress Head- atraumatic Eyes- PERRL, EOMI, ENT- oropharynx clear Neck- supple, no JVD Lungs- clear to auscultation Heart- regular rhythm; no murmur Abdomen- normal bowel sounds, soft, nontender Extremities- no calf tenderness Neuro- alert, oriented x 3; PERRL, EOMI; no facial palsy; no dysarthria Skin- warm & dry Results & Data Results & Data ([facility]) Vital Signs (Past 12 Hours) Vital Signs Temp Pulse Pulse Resp BP Pulse Ox 05/20/20 16:19 61 05/20/20 14:56 36.6 C 64 18 154/76 H 97 05/20/20 08:00 66 05/20/20 07:25 36.6 C 62 18 109/62 97
[2020-05-20] MEDS ORDERED: INSULIN DETEMIR FLEXPEN/FLEX TOUCH 100 UNITS/ML 3ML SQ SCH (21:00)
[2020-05-21] MEDS: PIPERACILLIN/TAZOBACTAM 3.375 GM in DEXTROSE 5% 100 ML IV SCH ×2 (05:48→14:41)
[2020-05-21 07:08] LABS: BUN Creatinine Ratio 12.9 (10-20); Calcium 8.5 mg/dl (8.5-10.1); Creatinine Clr Calc Pharmacy 81.7 ml/min; Est GFR (African American) 97.9; Est GFR (Non-African American) 84.5; Magnesium 1.9 mg/dl (1.8-2.4); Potassium 3.7 mmol/L (3.5-5.1)
[2020-05-21] MEDS: INSULIN ASPART 100 UNITS/ML 3 ML PEN SC SCH ×2 (08:15→12:40)
[2020-05-21] MEDS ORDERED: ADVANCED PROBIOTIC 1250 MG CAPSULE PO SCH (09:00)
--- NOTE | 2020-05-21 09:15 | Gastroenterology Progress Note ---
Date of Service May 21, 2020 Assessment & Plan (1) Abdominal pain, acute, epigastric: Pt is a 69 y/o male w hx of cholangiocarcinoma s/p Whipple at [facility] in 2013 who presented w epigastric abd pain, fever, chills x 5 days. Infectious workup negative so far, blood cx pending, he's getting Zosyn IV for coverage. Suspect cholangitis. LFTs were initially elevated but normalizing, lipase normal. CT abd/pelvis showed pancreatic duct dilation and calcification around that area unable to exclude stone, obstructing lesion/stricture. MRCP w/o signs of intrabiliary ductal dilatation, no filling defect in pancreatic duct though there's beaded appearance within distal body/tail area. 7mm pancreas tail lesion possibly IPMN noted. - Monitor LFTs - Continue antibx coverage for cholangitis; upon DC will need at last 10 days of antibx (Cipro/Flagyl) - Pt wishes to f/u w [facility] for further workup and intervention for biliary/pancreatic duct stricture, obstruction if needed. He has a scheduled appt there on 05/26 10a - GI to sign off; recall prn Admission and Anticipated Discharge Date Admission Date: May 19, 2020 Supervising Physician Co-Signing Physician Notes I saw and evaluated the patient. He notes that he feels much improved today and is to undergo further evaluation at [facility]. Would r ecommend completion of a 2-week course of antibiotics. Please call with any questions or concerns, GI to sign off Subjective Pt denies fever, chills, CP, SOB, abd pain, n/v. Had BM this AM w/o blood in stools Review of Systems Review of Systems: All systems reviewed & are unremarkable except as noted in HPI & below Physical Exam Constitutional: WD/WN, vitals as above well groomed, cooperative and comfortable Eyes: PERRL, conjunctivae normal, anicteric sclerae ENMT: external ear and nose normal, oropharynx normal Respiratory: normal respiratory effort, lungs clear to auscultation Cardiovascular: RRR, no murmur, no edema Gastrointestinal (Abdomen): normal bowel sounds, soft, nontender, no hepatosplenomegaly Skin: no rashes, warm and dry no jaundice Psychiatric: A+Ox3, euthymic affect Lymphatic: no lymphedema Results & Data ([facility]) Vital Signs (Past 12 Hours) Vital Signs Temp Pulse Pulse Resp BP BP Pulse Ox 05/21/20 07:34 36.5 C 60 18 126/72 98 05/21/20 07:00 90 05/21/20 03:28 36.6 C 61 18 122/69 96 05/20/20 23:02 36.7 C 64 18 122/67 97 05/20/20 22:24 61
[2020-05-21 09:35] LABS: Albumin Level 2.7 gm/dl (3.4-5.0); Bilirubin Direct 0.3 mg/dl (0-0.2); Bilirubin,Total 0.9 mg/dl (0.2-1); Total Protein 6.2 gm/dl (6.4-8.2)
--- NOTE | 2020-05-21 13:59 | Pharmacy Report ---
Pharmacy Glycemic Short Note 2 - Date of Service May 21, 2020 - Glycemic Short BSG Results (Last 24 hours): OUTPATIENT ANTIDIABETIC REGIMEN: * Lantus 20 units SQ HS + Novolog SSI * A1c = 7.7% ASSESSMENT: 05/21: * Patient received a total of 18 units of insulin yesterday * 15 units basal + 3 units bolus * BSGs were 63-06-74-136 mg/dL - well controlled * Fasting BSG was 110 mg/dL this AM - well controlled * Patient's appetite is much better today than yesterday so expect insulin requirements to increase * Will increase basal scale slightly * Postprandial BSG at lunch was 230 mg/dL - uncontrolled * Tightened CF/CR 05/20: * Catalino is a 69 yo male admitted with abdominal pain * He was continued on home Lantus dose last evening. BSGs have been below goal today, likely due to NPO status. He will be resuming a diet at dinner. * Will slightly decrease basal insulin and continue current novolog orders (based on weight/stress 2) PLAN FOR INPATIENT GLYCEMIC CONTROL: * Basal insulin - increased * Lantus 18-20 units SQ HS * 18 units for BSG < 200 mg/dl; 20 units for BSG 200 mg/dL or greater * Bolus insulin - tightened * NovoLog per scale ACHS or Q6hrs while NPO * Goal Range: Low 110 mg/dL - High 140 mg/dL * Correction Factor: 20 mg/dL/unit * Nutritional / Prandial insulin per carb ratio of 1 unit per 6 grams CHO consumed PLAN FOR DISCHARGE: * A1c acceptable based on patient age * Continue current dose and adjust per outpatient provider
--- NOTE | 2020-05-21 14:05 | Hospitalist Progress Note ---
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 There are no filling defects to indicate calculi. 7 mm cystic pancreatic tail lesion possibly representing a side branch IPMN Received IV Cefepime in the ED Blood cx no growth On IV Zosyn for now Continue pain control Gastro on board recommended to continue abx to complete 10-14 days course. if pt cont to improve, can complete outpt abx with cipro/flagyl. Consider outpatient HIDA scan as per GI Pt said that if he needs any intervention or procedure that he would want to get it done at [facility] Diet advanced as tolerated Already scheduled for appointment to see the specialist at [facility] spoke to radiology dept to burn CD for the CT abd/pelvis and MRCP Stable from GI standpoint to discharge home (4) Dyslipidemia: Statin on hold, will resume on discharge (5) Hypertension: Will resume benazepril Continue monitor BP (6) DM (diabetes mellitus): Acquired diabetes mellitus, status post Whipple procedure, on insulin Most recent Hba1c 7.7 Uses Levemir 20 units at bedtime and NovoLog with meals, Receive 10unit of Levemir since pt was NPO this morning Continue monitor BS Hypomagnesemia Mg 1.9 today Continue monitor electrolytes Code status: Full DVT ppx: SCDs Disposition Will discharge home Admission and Anticipated Discharge Date Admission Date: May 19, 2020 Subjective Pt was seen and examined for follow up of abdominal discomfort Lying in bed with no distress Pt said that he feels fine He said that he tolerated his diet He already has appointment next Sunday to see his specialist in [facility] Denies any chest pain, palpitation, dizziness, abdminal pain and SOB Review of Systems Review of Systems: All systems reviewed & are unremarkable except as noted in Subjective Physical Exam Physical Exam: General- No acute distress Head- atraumatic Eyes- PERRL, EOMI, ENT- oropharynx clear Neck- supple, no JVD Lungs- clear to auscultation Heart- regular rhythm; no murmur Abdomen- normal bowel sounds, soft, nontender Extremities- no calf tenderness Neuro- alert, oriented x 3; PERRL, EOMI; no facial palsy; no dysarthria Skin- warm & dry Results & Data Results & Data ([facility]) Vital Signs (Past 12 Hours) Vital Signs Temp Pulse Pulse Resp BP BP Pulse Ox 05/21/20 11:10 36.6 C 61 18 108/64 97 05/21/20 07:34 36.5 C 60 18 126/72 98 05/21/20 07:00 90 05/21/20 03:28 36.6 C 61 18 122/69 96
[2020-05-21] MEDS ORDERED: CIPROFLOXACIN 500 MG TAB PO SCH (15:00)
[2020-05-21] MEDS ORDERED: metroNIDAZOLE 500 MG TAB PO SCH (15:00)
[2020-05-21] MEDS ORDERED: LACTOBACILLUS ACIDOPHILUS 1 GM PACK PO SCH (21:00)
--- NOTE | 2020-05-24 09:06 | Discharge Summary ---
Date of Service May 21, 2020 Admission HPI Per Admitting Provider Mr. Jordan is a 69-year-old gentleman with history of hypertension, hyperlipidemia, history of cholangiocarcinoma, status post Whipple procedure at [facility] in January 2013, by Dr. Goldman, acquired diabetes mellitus requiring insulin status post Whipple, who presents with abdominal pain. Patient was first seen by PCP , Due to abdominal pain, which started on Sunday(4 to 5 days ago), got gradually worse into Sunday (May.15) and then got better. Patient was seen at PCPs office on May 17. The pain is located at below sternum, epigastric and midsternal area, right below the surgical scar. He has no issues with urination or bowel movements, denies any diarrhea. Did not have fever at home, however he does report chills. Denies any vomiting or nausea. Today he became more uncomfortable, and was shaking, his blood pressure was elevated when he checked it at home and therefore then presented to emergency room. He has not been eating today. Given his Whipple procedure, and history of cholangiocarcinoma, he does follow with [facility] and was actually seen in February. Reportedly a scan was done on February 18 and was found normal. Patient was initially afebrile when he came to the emergency room, however while in the ED, patient spiked fever, and continues to be febrile even after Tylenol. Blood cultures were obtained. And patient was given cefepime and IV fluids. PCP ordered blood work, which showed AST 27, ALT 70, alk phos 127, T bili 0.9 white blood cell count of 10,000, all these labs were obtained on May 17. Current labs showed white blood cell count 10,000, AST 47 and ALT 90, alk phos 167. Lipase only 24. CT abdomen pelvis concerning for possible pancreatic duct stone/stricture/occult lesion. And recommended endoscopic ultrasound evaluation. Admission Exam Per Admitting Provider Constitutional: WD/WN, vitals as above no acute distress Eyes: PERRL, conjunctivae normal, anicteric sclerae ENMT: external ear and nose normal, oropharynx normal Neck: trachea midline, no thyromegaly normal visual inspection Respiratory: normal respiratory effort, lungs clear to auscultation Cardiovascular: RRR, no murmur, no edema Chest: normal inspection of chest Gastrointestinal: normal bowel sounds and + abdominal surgical scar (mid/ center abdomen) Percussion/Palpation: abdomen soft; no guarding and abdomen not rigid tenderness to palpation in mid./ center abd. region (below surgical scar) Musculoskeletal: no cyanosis or clubbing, extremities motor strength 5/5 Head/Neck/Chest: normocephalic, head atraumatic and neck supple Skin: no rashes, warm and dry Neurologic: PERRL, EOMI, accommodation nl, no face palsy, no dysarthria moves all extremities Psychiatric: A+Ox3, euthymic affect Genitourinary:no CVA tenderness Lymphatic: no lymphedema Principal Diagnosis Abdominal pain, acute, epigastric: Fever: Cholangiocarcinoma: DM (diabetes mellitus): Hypomagnesemia Discharge Exam General- No acute distress Head- atraumatic Eyes- PERRL, EOMI, ENT- oropharynx clear Neck- supple, no JVD Lungs- clear to auscultation Heart- regular rhythm; no murmur Abdomen- normal bowel sounds, soft, nontender Extremities- no calf tenderness Neuro- alert, oriented x 3; PERRL, EOMI; no facial palsy; no dysarthria Skin- warm & dry Discharge Data Allergies Allergy/AdvReac Type Severity Reaction Status Date / Time No Known Allergies Allergy Verified 05/19/20 13:42 Consultations 05/19/20 16:40 ED Decision to Admit Stat 05/19/20 19:18 Consult Gastroenterology Routine 05/21/20 12:24 Burn CD for patient Routine Ordered Studies 05/19/20 12:16 CT abd pelvis oral and IV con Stat 05/20/20 09:57 MR MRCP Urgent MR MRCP CLINICAL HISTORY: Postop Whipple's procedure. Pancreatic ductal dilatation. Abnormal CT scan. COMPARISON STUDY: CT scan dated 05/19/2010 FINDINGS: A breath-hold MRCP was performed. MIP images were acquired. No suspicious hepatic renal or splenic masses are visualized. The gallbladder is surgically absent. There is no intrahepatic biliary ductal dilatation. There is evidence for a suspected hepaticojejunostomy. The pancreatic duct was not optimally demonstrated on this examination. There is a small cystic lesion within the pancreatic tail measuring 7 mm. This may represent a side branch IPMN. There is minimal dilatation of the pancreatic duct within the distal body and tail. There are no filling defects to indicate calculi. The patient appears be status post a Whipple's procedure. IMPRESSION: 1. Postsurgical changes are prior Whipple's procedure 2. No evidence of intrahepatic biliary ductal dilatation 3. Mild dilated beaded appearance of the pancreatic duct within the distal body and tail measuring 3.6 mm in diameter. There are no filling defects to indicate calculi. 4. 7 mm cystic pancreatic tail lesion possibly representing a side branch IPMN ACT 112: Negative or not required by law. Electronically signed by: Robert Perez M.D. 05/20/2020 12:45 PM Dictated: 05/20/20 1237Transcribed: 05/20/20 1237 XR chest 1V portable CLINICAL HISTORY: Respiratory sx c/w COVID-19 COUGH COMPARISON STUDY: 02/07/2013 FINDINGS: The cardiac and mediastinal contours are normal. There is no evidence of focal pulmonary consolidation. There is no evidence of failure. No pleural effusions are visualized.[ IMPRESSION: No active disease in the chest. ACT 112: Negative or not required by law. Electronically signed by: Robert Perez M.D. 05/19/2020 2:30 PM Dictated: 05/19/20 1429Transcribed: 05/19/[address] WITH IV AND ORAL CONTRAST CT DOSE: 603.89 mGy.cm HISTORY: epig pain, hx cholangioCA, s/p whipple 2012 TECHNIQUE: Multiaxial CT images of the abdomen and pelvis were performed following the use of intravenous and oral contrast. A dose lowering technique was utilized adhering to the principles of ALARA. COMPARISON STUDY: Abdomen and pelvis CT 02/07/2013. FINDINGS: Faint groundglass density within the left lower lobe medially likely represents atelectasis from the adjacent osteophyte. No pneumoperitoneum. No pneumatosis. Left femoral neck exostoses have slightly increased in size. Dominant exostosis measures 4.8 cm. There is a right hip prosthesis. Old, healed right posterior rib fractures. Status post Whipple procedure. No definite hepatic or splenic masses. Punctate calcifications within the adrenal glands. Normal left kidney. A few subcentimeter hypodense lesions within the right kidney which are technically too small to characterize. Statistically these represent cysts. No hydronephrosis. No ureteral stones. The bladder is mildly distended. No bladder wall thickening. The prostate gland is mildly enlarged. This is suboptimally assessed due to metallic artifact from the right hip prosthesis. No retroperitoneal lymphadenopathy. There is a left retroaortic renal vein. The main portal vein appears patent. There is focal dilatation at the main pancreatic duct at the tail the pancreas. There is an abrupt caliber change best seen on image 136 at the tail of pancreas. The main pancreatic duct measures up to 6 mm in diameter. There is a punctate calcification on image 145 near the abrupt caliber change. This is likely external to the duct. However, a small pancreatic duct stone cannot be excluded. This abrupt caliber change could also be secondary to a stricture or occult lesion. Diastases of the midline upper abdominal wall with outpouching of multiple bowel loops. However, no definite hernia identified. There is suture material within the right side of the abdomen adjacent to the proximal superior mesenteric artery with minimal infiltration of the fat. This is similar to the prior study and therefore favors postoperative changes. The majority subcentimeter right mesenteric/ileocolic lymph nodes remain stable. Increase in size in a single lymph node within the right side of the mesentery on image 147. This measures 1.4 x 0.8 cm. No pelvic free fluid. Moderate well-formed stool seen within the colon and rectum. Multi ple left upper quadrant varicosities have slightly progressed. Also moderate narrowing within the mid splenic vein. This is not well assessed due to the timing of contrast. No bowel wall thickening or obstruction. Normal appendix. IMPRESSION: 1. Postoperative changes again noted consistent with prior Whipple procedure. Mild infiltration of the fat within the right side the abdomen adjacent to the suture material is similar to the prior study. Therefore, this favors postoperative changes. The majority subcentimeter right mesenteric/ileocolic lymph nodes also remain stable. There is a single right-sided mesenteric lymph node which has slightly increased in size as described above. This bears watching future examinations. 2. No hepatic masses. 3. Focal dilatation of the main pancreatic duct at the tail of the pancreas. There is abrupt caliber change with a punctate calcification adjacent to this location. This calcification is likely external to the duct, however, an obstructing pancreatic duct stone cannot be excluded. In addition, this abrupt caliber change could be due to a stricture or an occult lesion. Therefore, follow-up endoscopic ultrasound is recommended for further evaluation. 4. Diastases of the midline upper abdominal wall with outpouching of multiple bowel loops. However, no definite hernia identified. 5. Moderate well-formed stool seen within the colon and rectum. 6. Possible moderate focal narrowing within the mid splenic vein. This is difficult to assess on this study due to the timing of contrast. This may account for the prominent left upper quadrant varicosities. 7. Additional findings as described above. ACT 112: Negative or not required by law. Electronically signed by: Jonathan Mandujano M.D. 05/19/2020 3:38 PM Dictated: 05/19/20 1509Transcribed: 05/19/20 1509 Hospital Course (1) Abdominal pain, acute, epigastric: (2) Fever: (3) Cholangiocarcinoma: Patient history of chondral carcinoma, status post liver procedure at [facility] in 2012 Present on admission with abdominal discomfort associated with chills and developed fever in the ED Liver enzymes mildly elevated on admission CT abdomen pelvis on admission concerning for pancreatic duct stone/stricture/occult lesion and recommend endoscopic ultrasound evaluation MRCP showed mild dilated beaded appearance of the pancreatic duct within the distal body and tail measuring 3.6 mm in diameter. There are no filling defects to indicate calculi. 7 mm cystic pancreatic tail lesion possibly representing a side branch IPMN Received IV Cefepime in the ED Blood cx no growth On IV Zosyn for now Continue pain control Gastro on board recommended to continue abx to complete 10-14 days course. if pt cont to improve, can complete outpt abx with cipro/flagyl. Consider outpatient HIDA scan as per GI Pt said that if he needs any intervention or procedure that he would want to get it done at [facility] Diet advanced as tolerated Already scheduled for appointment to see the specialist at [facility] spoke to radiology dept to burn CD for the CT abd/pelvis and MRCP Stable from GI standpoint to discharge home (4) Dyslipidemia: Statin on hold, will resume on discharge (5) Hypertension: Will resume benazepril Continue monitor BP (6) DM (diabetes mellitus): Acquired diabetes mellitus, status post Whipple procedure, on insulin Most recent Hba1c 7.7 Uses Levemir 20 units at bedtime and NovoLog with meals, Receive 10unit of Levemir since pt was NPO this morning Continue monitor BS Hypomagnesemia Mg 1.9 today Continue monitor electrolytes Code status: Full DVT ppx: SCDs Disposition Will discharge home Total Time Total Time Spent Total Time Spent (In Minutes): 35 minutes Total Time Includes: Examination of the Patient, Discharge Planning, Medication Reconciliation, Communication With Other Providers and Other Discharge Plan Discharge Items Patient Disposition: Home - Self-Care Reason For Visit: Abd pain, Fever, Poss Pancr. duct tricture Discharge Diagnosis: Abdominal pain, acute, epigastric: Fever: Cholangiocarcinoma: DM (diabetes mellitus): Hypomagnesemia Activity: Resume your previous activity Non-emergency contact: Primary Care Provider and [place] Call non-emergency contact if: you have any medication questions and your temp erature is above 101 Follow-up/Referrals: Dylan Esqueda DO [Primary Care Provider] - (Date & Time 05/28/2020 11:00 AM Provider Dylan Esqueda DO [facility] ) Diet: Carb Consistent or DM2 Addtl Attending Provider Instructions: Follow up with your primary care provider Dr. Esqueda on 05/28/2020 at 11:00 PM Follow up with your specialist at [facility] on 05/26 @ 10 AM Complete the course of the antibiotic with Flagyl and Cipro Seek medical attention if you develop any fever or chills Continue monitor your blood sugar and bring your blood sugar log at your next appointment with your provider Pending Studies at Discharge: No Stand-Alone Forms: [facility] [employer], Smoking Cessation Medications and DC Order Prescriptions: New ciprofloxacin HCl 500 mg Tablet 500 mg PO BID 10 Days Qty: 20 RF: 0 metronidazole 500 mg Tablet 500 mg PO TID 10 Days Qty: 30 RF: 0 Continued multivitamin Tablet 1 tab PO DAILY RF: 0 amoxicillin 500 mg Capsule 2,000 mg PO .PRIOR TO DENTAL DORITA RF: 0 atorvastatin 40 mg Tablet 40 mg PO HS RF: 0 glucagon 1 mg Kit 1 mg DIRECTED PRN (Reason: Glucose Emergency) RF: 0 ascorbic acid (vitamin C) [Vitamin C] 1,000 mg Tablet 1 g PO DAILY RF: 0 acetaminophen [Tylenol] 325 mg Tablet 650 mg PO QID PRN (Reason: pain or fever) RF: 0 sildenafil 100 mg Tablet 100 mg PO DAILY PRN (Reason: Erectile Dysfunction) RF: 0 ibuprofen [Advil] 200 mg Tablet 200 mg PO Q6H PRN (Reason: Pain) RF: 0 benazepril 10 mg Tablet 10 mg PO DAILY RF: 0 emhxzkf-ftgxos-ksvhjvrn-cellul Capsule 2 cap PO TID RF: 0 insulin aspart U-100 [Novolog Flexpen U-100 Insulin] 100 unit/mL (3 mL) Insulin Pen 0 unit SUBCUT TID RF: 0 Levemir FlexTouch U-100 Insuln 100 unit/mL (3 mL) Insulin Pen 20 unit SUBCUT HS RF: 0 Discharge Orders: Discharge Order (Routine); Ordered 05/21/20 Ordered By: Roxanne Garcia/Other Patient Handouts: Managing Diabetes: The A1C Test Admission Data Admit Date/Time: 05/19/20 17:13 Attending Provider: Roxanne Oakes Admit Provider: Jacky Foster Primary Care Provider: Dylan Esqueda Other Providers: Jacky Foster ; Cruz Faroqo Other Interventions: Discharge Summary Assessment (RN) Last Done: 05/21/20 14:54
== END 2020-05-21 16:07 | disposition home or self-care (01) | DRG 392 ==
LOC: ED 11:02 → SUATTDRO 17:13 → 2W 17:13